=== PATIENT | male | born 1990 | race Caucasian/White ===

== ENCOUNTER 2017-12-04 17:42 | Emergency (ER) | payer OTHER, BC ==
[~2017-12-04] VITALS: Ht 172.7 cm; Wt 114.3 kg
[~2017-12-04 17:42] MED LIST: FLEXERIL10 MG PO; NAPROSYN500 MG PO
[2017-12-04] MEDS ORDERED: AUGMENTIN875 MG PO (18:47)
[2017-12-04 19:25] LABS: HEMATOCRIT 47.1 % (38.0-50.0); HEMOGLOBIN 16.1 G/DL (12.5-16.6); MCH 29.5 PG (29.0-34.0); MCHC 34.2 G/DL (30.0-36.0); MCV 86.4 FL (86-99); PLATELET COUNT 207 K/uL (156-360); RBC DIS.WIDTH-CV 13.1 % (11.8-14.6); RBC DIS.WIDTH-SD 41.1 % (39-53); RED BLOOD COUNT 5.45 M/uL (4.00-5.50); WHITE BLOOD COUNT 7.6 K/uL (4.1-10.2)
[2017-12-04 19:34] LABS: ALBUMIN 4.8 g/dL (3.2-4.8); CHLORIDE 105 mEq/L (99-109); POTASSIUM 4.1 mEq/L (3.7-5.4); SODIUM 142 mEq/L (136-147)
[2017-12-04 19:36] LABS: GLUCOSE 96 mg/dL (70-99); TOTAL PROTEIN 7.7 g/dL (6.4-8.3)
[2017-12-04 19:38] LABS: TOTAL BILIRUBIN 0.4 mg/dL (0.0-1.0)
[2017-12-04 19:40] LABS: ALKALINE PHOSPHATASE 67 IU/L (3-129); CREATININE 1.2 mg/dL (0.6-1.3); GFR ESTIMATE (CALCULATED) > 59 mL/min/ (58.99-99999)
[2017-12-04 19:41] LABS: UREA NITROGEN (BUN) 8 mg/dL (9-23)
[2017-12-04 19:42] LABS: AST (GOT) 44 IU/L (2-34)
[2017-12-04 19:43] LABS: ALT (GPT) 80 IU/L (3-49)
[2017-12-04 19:44] VITALS: BP 146/100
[2017-12-04 20:18] LABS: ANTI-HIV (AIDS STAT TEST) NONREACTIVE
[2017-12-06 12:00] LABS: HEPATITIS B SURFACE ANTIGEN Nonreactive
[2017-12-06 12:01] LABS: HEPATITIS B SURFACE ANTIBODY Nonreactive; HEPATITIS C ANTIBODY Nonreactive
[2017-12-06 12:02] LABS: ANTI-HEPATITIS B CORE (IGM) Nonreactive
[2017-12-06 12:03] LABS: HIV-1/2 AB/AG COMBO Nonreactive
[2017-12-07 20:18] LABS: HCV RNA (IU/mL) <15 IU/mL (()); HCV RNA (LOG IU/mL) <1.18 (())
== END 2017-12-04 19:47 | disposition home or self-care (01) ==
LOC: EME 17:42
PROVIDERS: Nurse Practitioner Family
DX: S50.812A Abrasion of left forearm, initial encounter (principal); Y04.1XXA Assault by human bite, initial encounter; Y99.0 Civilian activity done for income or pay
CPT/HCPCS: 73110; 80053; 85027; 86705; 86706; 86803; 87340; 87389; 87522 90; 99281; 99284